=== PATIENT | female | born 1995 | race Caucasian/White ===

== ENCOUNTER 2018-10-27 07:42 | Outpatient (CLI) | payer OTHER ==
--- NOTE | 2018-10-27 09:13 | ULT ---
LIMITED LEFT BREAST ULTRASOUND: DATE: 10/27/2018. PROVIDED CLINICAL HISTORY: Left breast palpable abnormality. FINDINGS: Limited sonographic interrogation is performed of the left breast in the 5-6 o'clock location in the region of palpable concern. The sonographic appearance of the breast tissue in this region is normal . IMPRESSION: No sonographic abnormality is evident in the region of palpable concern. Negative imaging findings s hould not preclude further evaluation of the clinically suspicious area. The patient is referred jackie k to her clinician. POS: OFF
== END 2018-10-27 07:43 | disposition home or self-care (01) ==
LOC: BICULT 07:42
PROVIDERS: ATTEND Registered Nurse
DX: N63.23 Unspecified lump in the left breast, lower outer quadrant (principal)